=== PATIENT | female | born 1995 | race Hispanic/Latino ===

== ENCOUNTER 2024-04-05 19:29 | Emergency (ER) | payer OTHER ==
[~2024-04-05] VITALS: Ht 165.1 cm; Wt 64.4 kg
[2024-04-05 19:55] LABS: APPEARANCE,URINE CLEAR (CLEAR); BILIRUBIN,URINE NEGATIVE (NEGATIVE); COLOR,URINE LIGHT-YELLOW (YELLOW); GLUCOSE, URINE (UA) NEGATIVE (NEGATIVE); KETONES,URINE NEGATIVE (NEGATIVE); LEUKOCYTE ESTERASE ,URINE NEGATIVE Leu/uL (NEGATIVE); NITRATE,URINE NEGATIVE (NEGATIVE); OCCULT BLOOD,URINE SMALL (NEGATIVE); PH,URINE 5.5 (5.0-8.0); PROTEIN,URINE NEGATIVE (NEGATIVE); UROBILINOGEN,URINE 0.2 mg/dL (0.2-1.0)
[2024-04-05 19:57] LABS: ADD UA MICROSCOPIC YES
[2024-04-05 20:00] LABS: HCG,QUALITATIVE URINE NEGATIVE (NEGATIVE)
[2024-04-05 20:00] LABS: BASOPHILS # (AUTO) 0.03 K/uL (0.00-0.20); BASOPHILS % (AUTO) 0.6 % (0.0-5.0); EOSINOPHILS # (AUTO) 0.06 K/uL (0.00-0.70); EOSINOPHILS % (AUTO) 1.2 % (0.0-8.0); HEMATOCRIT 35.8 % (36-48); IMMATURE GRANULOCYTE ABSOLUTE 0.01 K/uL (0-1); LYMPHOCYTES # (AUTO) 0.7 K/uL (1.0-4.8); LYMPHOCYTES % (AUTO) 15.1 % (21.0-51.0); MEAN CORPUSCULAR HEMOGLOBIN 28.6 pg (27.0-33.0); MEAN CORPUSCULAR HGB CONC 34.1 g/dL (32.0-36.0); MONOCYTES # (AUTO) 0.6 K/uL (0.1-1.0); NEUTROPHILS # (AUTO) 3.4 K/uL (1.8-7.7); NEUTROPHILS % (AUTO) 69.9 % (40.0-77.0); PLATELET COUNT (AUTO) 171 K/uL (130-400); RED BLOOD CELL COUNT(AUTO) 4.26 MIL/uL (4.00-5.50); RED CELL DISTRIBUTION WIDTH 12.8 % (11.0-15.5); WHITE BLOOD COUNT (AUTO) 4.8 K/uL (4.8-10.8)
[2024-04-05] MEDS ORDERED: CEFTRIAXONE 2GM VIAL IVPB ONE (20:00)
[2024-04-05] MEDS ORDERED: 0.9%NACL 1000ML 1,710 ML IV ONE (20:00)
[2024-04-05 20:03] LABS: BACTERIA,URINE RARE /HPF (None Seen); MUCUS,URINE RARE LPF (None Seen); SQUAMOUS EPITHELIAL CELL,UR RARE /HPF (0-2)
[2024-04-05 20:10] LABS: RAPID GROUP A STREP negative (NEGATIVE)
[2024-04-05 20:11] LABS: POTASSIUM 3.9 mmol/L (3.5-5.1)
[2024-04-05 20:16] LABS: ALBUMIN 3.8 g/dL (3.5-5.0); BILIRUBIN,TOTAL 0.3 mg/dL (0.2-1.0); TOTAL PROTEIN, SERUM 7.9 g/dL (6.0-8.3)
[2024-04-05 20:16] LABS: SARS-CoV-2, RNA, NAAT NEGATIVE SARS CoV-2 (NEGATIVE)
[2024-04-05 20:20] LABS: INFLUENZA TYPE B Negative For Type B (NEGATIVE)
[2024-04-05 20:55] LABS: INFLUENZA TYPE A Positive For Type A (NEGATIVE)
[2024-04-05] MEDS ORDERED: ALBUHFA IH (21:01)
[2024-04-05] MEDS ORDERED: OSEL75 PO (21:01)
[2024-04-05] MEDS ORDERED: IBUP-2077 PO (21:01)
[2024-04-05] MEDS ORDERED: BENZ-39 PO (21:02)
[2024-04-05 21:29] VITALS: TEMP 101.5
[2024-04-05] MEDS: ACETAMINOPHEN 500 MG TABLET PO ONE (21:29)
[2024-04-05 22:00] VITALS: BP 145/90; PULSE 100; RESP 20; O2SAT 99
== END 2024-04-05 22:11 | disposition home or self-care (01) ==
LOC: EDH 19:29
DX: J10.1 Influenza due to other identified influenza virus with other respiratory manifestations (principal); Z20.822 Contact with and (suspected) exposure to COVID-19
CPT/HCPCS: 36415; 71045; 80053; 81001; 81025; 83605; 85025; 87040; 87635; 87804; 87880; 93005; J0696

== ENCOUNTER 2025-09-20 15:18 | Emergency (ER) | payer SELFPAY ==
[~2025-09-20] VITALS: Ht 165.1 cm; Wt 115.7 kg
[~2025-09-20 15:18] MED LIST: ALBUHFA IH; BENZ-39 PO; IBUP-2077 PO; OSEL75 PO
[2025-09-20 15:48] LABS: APPEARANCE,URINE CLEAR (CLEAR); GLUCOSE, URINE (UA) NEGATIVE (NEGATIVE); LEUKOCYTE ESTERASE ,URINE 500 Leu/uL (NEGATIVE); NITRATE,URINE NEGATIVE (NEGATIVE); OCCULT BLOOD,URINE SMALL (NEGATIVE)
[2025-09-20 15:49] LABS: ADD UA MICROSCOPIC YES
[2025-09-20 15:51] LABS: SQUAMOUS EPITHELIAL CELL,UR FEW /HPF (0-2)
[2025-09-20 15:52] LABS: HCG,QUALITATIVE URINE NEGATIVE (NEGATIVE)
--- NOTE | 2025-09-20 16:00 | ERN ---
ED Note History of Present Illness Stated Complaint: LOWER ABD PAIN Chief Complaint: Abdominal Pain Time Seen by MD: 15:20 Time Seen by Midlevel: 15:30 Dictation: Patrick is a 29-year-old female with history of morbid obesity and chorioamnionitis after miscarriage in 2021, presenting with delayed menses (7-10 days late) and low suprapubic abdominal discomfort described as bloating gas and rectal pressure. Has no fever, chills, chest pain, palpitations, shortness of breath, nausea,vomiting, diarrhea, or urinary symptoms. She states she has had normal bowel movements and is passing flatus. She said she recently completed a five day course of Bactrim for a vulvar abscess status post I and D which is now healed. She states at that time they told her she might have a mild UTI. Allergies: Coded Allergies: No Known Allergies (Unverified Allergy, Unknown, 04/05/24) Home Meds Active Scripts Cephalexin (Cephalexin) 500 Mg Tablet, 1 TAB PO BID for 7 Days, #14 TAB 0 Refills Prov:JENNIFFER RIVERA ACLS SPECIALIST 09/20/25 Benzonatate (Tessalon Perles) 100 Mg Cap, 100 MG PO TID for cough, #30 CAP 0 Refills Prov:NIR CRAFT [facility] 04/05/24 Ibuprofen (Ibuprofen 800 mg Tab) 800 Mg Tab, 800 MG PO Q8H PRN for fever or pain, #30 TAB 0 Refills Prov:NIR CRAFT [facility] 04/05/24 Albuterol Sulfate (Ventolin Hfa/Proventil Hfa/Proair Hfa) 90 Mcg Puff, 2 PUFF IH Q4H for WHEEZING, #1 INHALER 0 Refills Prov:NIR CRAFT [facility] 04/05/24 Oseltamivir Phosphate (Tamiflu) 75 Mg Cap, 75 MG PO BID for 5 Days, #10 CAP Prov:NIR CRAFT [facility] 04/05/24 Past Medical History Past Medical History: No Pertinent History Surgical History: Other Surgical History Other: D&C PSYCH History: no pertinent psych hx Social History: Negative, Lives with family History: Not Applicable LMP: Aug 13, 2025 : 4 Para: 3 Aborts: 1 RN Note Reviewed/Agreed w/PFSH: Yes Review of System Dictation REVIEW OF SYSTEMS: CONSTITUTIONAL: Patient denies fevers, chills, sweats and weight changes. EYES: Patient denies any visual symptoms. EARS, NOSE, AND THROAT: No difficulties with hearing. No symptoms of rhinitis or sore throat. CARDIOVASCULAR: Patient denies chest pains, palpitations, orthopnea and paroxysmal nocturnal dyspnea. RESPIRATORY: No dyspnea on exertion, no wheezing or cough. GI: No nausea, vomiting, diarrhea, constipation, abdominal pain, hematochezia or melena. : No urinary hesitancy or dribbling. No nocturia or urinary frequency. No abnormal urethral discharge. Denies vaginal bleeding. Reports delayed menses; 7-10 days late. Reports suprapubic pain. MUSCULOSKELETAL: No myalgias or arthralgias. NEUROLOGIC: No chronic headaches, no seizures. Patient denies numbness, tingling or weakness. PSYCHIATRIC: Patient denies problems with mood disturbance. No problems with anxiety. ENDOCRINE: No excessive urination or excessive thirst. DERMATOLOGIC: Patient denies any rashes or skin changes. Initial Vital Sign VS Vital Signs Date Time Temp Pulse Resp B/P (MAP) Pulse Ox O2 Delivery O2 Flow Rate FiO2 09/20/25 15:19 98.4 84 20 139/83 99 Room Air Physical Exam Dictation Vital signs: Reviewed. Afebrile Constitutional: No acute distress. Non-toxic appearing. Head/Face: Normocephalic, atraumatic. Eyes: Periorbital areas with no swelling, redness, or edema. Lids and lashes are normal. Conjunctival injection is absent. Sclera anicteric. Pupils equal, round, reactive to light. ENT: Pinnas intact and no signs of trauma or erythema. Ear canals clear and no discharge. TMs no erythema. No nasal discharge or bleeding noted. Oropharynx with no exudate, redness, swelling, masses, exudates, or evidence of obstruction. Uvula midline. Mucous membranes moist. Neck: Trachea midline, no masses palpated, and no cervical lymphadenopathy. No swelling. Supple, full range of motion. Chest/Axilla: No tenderness, no crepitus, no paradoxical movement, no retractions. Cardiovascular: Regular rate, regular rhythm, no murmur, no gallops. Symmetric pulses. No peripheral edema. BP 139/83 Respiratory: Respirations even and unlabored. Lung sounds clear; no wheezes, rales or rhonchi. Room air SpO2 98% Gastrointestinal: Obese No distention is appreciated. Bowel sounds are normal. No mass or organomegaly . There is no tenderness. No rebound. No rigidity. No voluntary or involuntary guarding. No Julio's sign. : Positive suprapubic tenderness. Negative CVA tenderness bilaterally Neurological: Normal speech, gross motor function intact, gross sensory function intact. No focal weakness/Paresthesia. Musculoskeletal/Extremities: All extremities have full range of motion, no pain or tenderness on palpation. Symmetric pulses. Integumentary: Intact. Skin is normal color, warm and dry. Cap refill less than 3 seconds. Results (Laboratory/Radiology) Laboratory/Radiology Laboratory Tests Test 09/20/25 15:27 09/20/25 16:09 Urine Color YELLOW (YELLOW) Urine Appearance CLEAR (CLEAR) Urine pH 5.5 (5.0-8.0) Urine Specific Coden 1.025 (1.001-1.031) Urine Protein NEGATIVE mg/dL (NEGATIVE) Urine Glucose (UA) NEGATIVE mg/dL (NEGATIVE) Urine Ketones NEGATIVE mg/dL (NEGATIVE) Urine Occult Blood SMALL (NEGATIVE) H Urine Nitrate NEGATIVE (NEGATIVE) Urine Bilirubin NEGATIVE mg/dL (NEGATIVE) Urine Urobilinogen 0.2 mg/dL (0.2-1.0) Urine Leukocyte Esterase 500 Rex/uL (NEGATIVE) H Urine RBC 6-10 /HPF (0-1) H Urine WBC 11-25 /HPF (0-1) H Urine Squamous Epithelial Cells FEW /HPF (0-2) Urine Bacteria FEW /HPF (None Seen) Urine HCG, Qualitative NEGATIVE (NEGATIVE) White Blood Count 6.8 K/uL (4.8-10.8) Red Blood Count 4.52 MIL/uL (4.00-5.50) Hemoglobin 11.9 g/dL (12.0-16.0) L Hematocrit 36.5 % (36-48) Mean Corpuscular Volume 80.8 fL (79-99) Mean Corpuscular Hemoglobin 26.3 pg (27.0-33.0) L Mean Corpuscular Hemoglobin Concent 32.6 g/dL (32.0-36.0) Red Cell Distribution Width 15.3 % (11.0-15.5) Platelet Count 235 K/uL (130-400) Mean Platelet Volume 10.4 fL (7.5-10.5) Immature Granulocyte % (Auto) 0.1 % (0-1) Neutrophils (%) (Auto) 65.1 % (40.0-77.0) Lymphocytes (%) (Auto) 25.8 % (21.0-51.0) Monocytes (%) (Auto) 6.5 % (3.0-13.0) Eosinophils (%) (Auto) 1.8 % (0.0-8.0) Basophils (%) (Auto) 0.7 % (0.0-5.0) Neutrophils # (Auto) 4.4 K/uL (1.8-7.7) Lymphocytes # (Auto) 1.7 K/uL (1.0-4.8) Monocytes # (Auto) 0.4 K/uL (0.1-1.0) Eosinophils # (Auto) 0.12 K/uL (0.00-0.70) Basophils # (Auto) 0.05 K/uL (0.00-0.20) Absolute Immature Granulocyte (auto 0.01 K/uL (0-1) Nucleated Red Blood Cells 0.0 % (0.0-0.19) Sodium Level 138 mmol/L (136-145) Potassium Level 4.0 mmol/L (3.5-5.1) Chloride Level 107 mmol/L (101-111) Carbon Dioxide Level 27 mmol/L (21-32) Blood Urea Nitrogen 9 mg/dL (7-18) Creatinine 0.7 mg/dL (0.5-1.0) Glomerular Filtration Rate Calc 119 mL/min (>90) Random Glucose 168 mg/dL (70-105) H Total Calcium 8.1 mg/dL (8.5-10.1) L Labs Reviewed?: Yes ED Course ED Course Orders Procedure Category Date Status Time Urinalysis Profile LAB 09/20/25 Complete 15:33 ,Urine Test LAB 09/20/25 Complete 15:33 Culture Urine VINCE 09/20/25 In Process 15:50 Cbc With Differential LAB 09/20/25 Complete 15:48 Basic Metabolic Panel LAB 09/20/25 Complete 15:48 Ceftriaxone 1g Vial PHA 09/20/25 In Process (Rocephine 1g Inj) 18:00 Current Medications Medications (Trade) Dose Ordered Sig/Deangelo Route PRN Reason Start Time Stop Time Status Last Admin Dose Admin Ceftriaxone Sodium (ROCEphine 1G INJ) 1 gm ONCE IM 09/20/25 18:00 09/20/25 22:00 Vital Signs Date Time Temp Pulse Resp B/P (MAP) Pulse Ox O2 Delivery O2 Flow Rate FiO2 09/20/25 15:19 98.4 84 20 139/83 99 Room Air 29-year-old female presented with suprapubic abdominal pain and urinary symptoms, concerned about possible . Patient was hemodynamically stable and afebrile throughout ED course. Evaluation included laboratory studies and urinalysis. Urine test was negative. CBC showed no leukocytosis with stable H&H; 11.9/36.5. Blood glucose was mildly elevated at 168. Patient states she had gestational diabetes but has never been told shoes diabetic or prediabetic. Renal function was within normal limits. Urinalysis was notable for positive blood, leukocyte esterase, and 11-25 WBCs per high- power field, consistent with urinary tract infection. Urine culture sent and is pending. Patient received Rocephin IM in the emergency department. She remained clinically stable nausea, vomiting, fever, or worsening pain. Given reassuring vital signs, negative test, and treatment initiated, patient was deemed stable for discharge with oral antibiotics and outpatient follow up. Medical Decision Making MDM MDM: Differential diagnosis: Menses/menstrual irregularity, early , dysmenorrhea resolved or partially resolved UTI, cystitis, anemia Rationale: Tests considered and ordered secondary to shared decision making include: Previous outside records reviewed: Old ER visits. Risk of complication and/or morbidity or mortality of patient management: None Medications-Per medication reconciliation Need for hospitalization: Patient does not meet criteria for hospitalization. Need for emergency major/minor surgery: No There are no social concerns with this patient. Prescription drug management: Cephalexin Prescriptions will include symptomatic care Patient's prior external medical records from other ER visits were reviewed by me as indicated. Prior testing and results from previous visits were reviewed. Prior tests were taken into account with medical decision making and resource utilization, independent historian/historians were used to obtain complete medical history. I independently interpreted the test that were performed, results were reviewed by me and considered findings on radiology if ordered. Medical management and examination interpretation discussions were had by me with other qualified healthcare professionals as indicated for the patient's care. DX & DISP Disposition: Discharge Departure Impression: Primary Impression: UTI (urinary tract infection) Additional Impressions: Abdominal pain, suprapubic, Negative test, Elevated random blood glucose level Condition: Stable Scripts Cephalexin (Cephalexin) 500 Mg Tablet 1 TAB PO BID for 7 Days, #14 TAB 0 Refills Prov: JENNIFFER RIVERA 09/20/25 Additional Instructions: Continue antibiotics with Keflex twice daily for seven days. Rest. Drink plenty of fluids. test today was negative. Menstrual timing can be affected by colon infection (such as a urinary tract infection or your recent abscess), stress, illness, recent antibiotics, or hormonal fluctuations. Follow up with your OBGYN if your menstrual cycle does not returned to normal if you continue to have concerns about . You will be contacted if your urine culture requires a change in antibiotics. Return to the emergency department i mmediately if you develop worsening lower abdominal/pelvic pain, heavy vaginal bleeding, fever/chills, new dizziness/fainting/weakness, or persistent vomiting. Follow up with your PCP regarding elevated blood glucose level. Referrals: SELF,REFERRAL (PCP) Time of Disposition: 17:48 JENNIFFER RIVERA Sep 20, 2025 15:59 ZULY NEWMAN DO Sep 20, 2025 18:01
[2025-09-20 16:15] LABS: IMMATURE GRANULOCYTE ABSOLUTE 0.01 K/uL (0-1); NUCLEATED RED BLOOD CELLS 0.0 % (0.0-0.19); PLATELET COUNT (AUTO) 235 K/uL (130-400); RED BLOOD CELL COUNT(AUTO) 4.52 MIL/uL (4.00-5.50); RED CELL DISTRIBUTION WIDTH 15.3 % (11.0-15.5); WHITE BLOOD COUNT (AUTO) 6.8 K/uL (4.8-10.8)
[2025-09-20 16:26] LABS: CREATININE 0.7 mg/dL (0.5-1.0); GLOMERULAR FILTR. RATE CALC 119.0 mL/min (>90); GLUCOSE,RANDOM 168.0 mg/dL (70-105); SODIUM SERUM 138.0 mmol/L (136-145); UREA NITROGEN, BLOOD 9.0 mg/dL (7-18)
[2025-09-20] MEDS ORDERED: CEPH500T PO (17:44)
[2025-09-20 18:09] VITALS: BP 145/79; PULSE 79; RESP 16; TEMP 98.1; O2SAT 99
== END 2025-09-20 18:24 | disposition home or self-care (01) ==
LOC: EDH 15:18
DX: N39.0 Urinary tract infection, site not specified (principal); R10.24 Suprapubic pain; Z32.02 Encounter for pregnancy test, result negative; R73.09 Other abnormal glucose; E66.01 Morbid (severe) obesity due to excess calories
CPT/HCPCS: 99283; 80048; 85025; 87086; 81001; 81025; 36415; 96372; J0696